=== PATIENT | male | born 2000 | race American Indian/Alaskan Native ===

== ENCOUNTER 2021-04-03 09:38 | Emergency (ER) | payer OTHER ==
[~2021-04-03] VITALS: Ht 193 cm; Wt 113.4 kg
[~2021-04-03 09:38] MED LIST: SEPTRA DS TABL1 EACH PO
[2021-04-03] MEDS ORDERED: PREDNISONE20 MG PO (13:31)
== END 2021-04-03 13:40 | disposition home or self-care (01) ==
LOC: ED 09:38
DX: S29.012A Strain of muscle and tendon of back wall of thorax, initial encounter (principal); Z87.891 Personal history of nicotine dependence; Z88.1 Allergy status to other antibiotic agents; X50.0XXA Overexertion from strenuous movement or load, initial encounter
CPT/HCPCS: 96374; 96375; 99283-25; J1100; J1885